=== PATIENT | female | born 1945 | race Caucasian/White ===

== ENCOUNTER 2016-05-28 18:12 | Observation (INO) | payer MEDICAID, MEDICARE ==
[~2016-05-28] VITALS: Ht 157.5 cm; Wt 63.4 kg
[2016-05-28 18:16] VITALS: BP 127/77; PULSE 78; RESP 16; O2SAT 98
[2016-05-28] MEDS ORDERED: BIOT10004 (18:23)
[2016-05-28] MEDS ORDERED: LAMO100T2 PO (18:23)
[2016-05-28] MEDS ORDERED: LEVO125T6 PO (18:23)
[2016-05-28] MEDS ORDERED: SERT100T9 PO (18:23)
[2016-05-28] MEDS ORDERED: LOSA50TA37 PO (18:23)
[2016-05-28] MEDS ORDERED: LOVA20TA PO (18:23)
[2016-05-28] MEDS ORDERED: INDA1.252 PO (18:23)
[2016-05-28 18:46] LABS: BASOPHILS % (AUTO) 0.6 % (0-3); EOSINOPHILS % (AUTO) 2.4 % (0-5); MONOCYTES % (AUTO) 8.8 % (4-12); Mean Corpuscular Hemoglobin 30.2 pg (27.0-35.0); Mean Corpuscular Volume 87.9 fL (81-100); NEUTROPHILS % (AUTO) 50.9 % (40-74); Platelet Count 293 bil/L (150-400)
--- NOTE | 2016-05-28 19:00 | ED.REPORT ---
HPI-Chest Pain 40 and Over Date of Service May 28, 2016 ED Provider: Dr. Amado Pineda D.O. 70 year old female presents for evaluation of precordial chest pain.. The pain lasted 15-20 minutes and was "tight" in nature, with radiation through to her back. The patient also reports shortness of breath. She denies fever, cough, vomiting, diarrhea, or other symptoms. The patient had a similar episode of chest pain three months ago, after which she was seen by her PCP who instructed her to visit the ED with any reoccurrence of pain. She has a family history of CAD in her father and brother. Nursing Notes Stated Complaint: CHEST PAIN Chief Complaint: Chest Pain Nursing Notes Reviewed: Yes Allergies: Coded Allergies: erythromycin base (Verified Allergy, Intermediate, Nausea,Vomiting, ) propoxyphene (Verified Allergy, Intermediate, Nausea, 05/28/16) Uncoded Allergies: DAIRY (Allergy, Unknown, stomach upset, 05/06/15) Scheduled Biotin (Biotin) 1,000 Mcg Tab.chew 1,000 MCG BID Indapamide (Indapamide) 1.25 Mg Tablet 1.25 MG PO DAILY Lamotrigine (Lamotrigine) 100 Mg Tablet 200 MG PO QPM Levothyroxine (Levothyroxine) 125 Mcg Tablet 75 MCG PO DAILY Losartan Potassium (Losartan Potassium) 50 Mg Tablet 50 MG PO BID Lovastatin (Lovastatin) 20 Mg Tablet 20 MG PO QPM Sertraline HCl (Sertraline) 100 Mg Tablet 100 MG PO DAILY General Time Seen by MD: 18:59 Chief Complaint Chest pain Hx Obtained From: Patient Arrived By: Walk-in Sudden in Onset?: Yes Onset Occurred: 1 - 4 hours ago Symptom Duration: 1 - 15 minutes Location: : Substernal Quality: Painful (Tight) Radiation: : Back Severity: Current: No pain currently Severity: Maximum: Moderate Associated with: Reports: Shortness of Breath, Denies: Cough, non-productive, Fever, Nausea, Vomiting Context Related History: Reports: Hypertension Recent Healthcare: No recent doctor visit Similar Sx Previous: Yes Past Medical History Past Medical History Hx. of R TM perf Hypertension Migraines Bipolar disorder Reports: Mental illness Past Surgical History None reported Family History Father had CABG, [place], stroke Brother had [place] Smoking History Never Smoker Social History Alcohol Use: Denies alcohol use Drug Use: Denies drug use Ambulatory Status Independent Review of Systems Basic Review of Systems Eyes: Vision NL ENT: Hearing NL, No pain : No dysuria Hematologic: No bleeding Endocrine: No cold intolerance, No heat intolerance Allergy / Immune: No allergy Constitutional: Denies: Fever Respiratory: Reports: Shortness of breath, Denies: Non-productive cough Cardiovascular: Reports: Chest pain (Precordial) GI: Denies: Diarrhea, Vomiting Skin: Denies Diaphoresis Complete sys rev & neg: except as marked. Physical Exam Initial Vital Signs Vital Signs (First) Date Time Temp Pulse Resp B/P Pulse Ox O2 Delivery O2 Flow Rate FiO2 05/28/16 18:16 36.1 78 16 127/77 98 Room Air Initial VS: Reviewed Head / Eyes: Atraumatic, Normocephalic ENT: Conjunctiva normal, No scleral icterus Neck: Supple, Full range of motion Extremities: Vascular intact, Neuro intact, No swelling Skin: Warm, Dry, No cyanosis Neurologic: Alert, Oriented, Nonfocal Psychiatric: Mood/affect normal, Behavior normal, Normal thought content General/Constitutional: Awake, Alert, No acute distress Respiratory / Chest: Breath sounds NL, Breath sounds = bilat, No respiratory distress, No chest tenderness Cardiovascular: Heart rate NL, Regular rhythm, Heart sounds NL Abdomen: Soft, Non-tender Interpretation & Diagnostics Lab Results Interpretation Result Diagram: 05/28/163 05/28/16 1833 Test 05/28/16 18:33 05/28/16 20:53 White Blood Count 6.6th/mm3 (3.8-10.1) Red Blood Count 4.14mil/mm3 (3.90-5.20) Hemoglobin 12.5g/dL (12.0-15.6) Hematocrit 36.4% (35.0-46.0) Mean Corpuscular Volume 87.9fL (81-100) Mean Corpuscular Hemoglobin 30.2pg (27.0-35.0) Mean Corpuscular Hemoglobin Concent 34.3% (32.0-37.0) Red Cell Distribution Width 12.1% (12.3-15.4) Platelet Count 293bil/L (150-400) Neutrophils (%) (Auto) 50.9% (40-74) Lymphocytes (%) (Auto) 37.3% (14-46) Monocytes (%) (Auto) 8.8% (4-12) Eosinophils (%) (Auto) 2.4% (0-5) Basophils (%) (Auto) 0.6% (0-3) Prothrombin Time 9.4sec (8.1-12.5) Prothromb Time International Ratio 0.88ratio Activated Partial Thromboplast Time 25.2sec (22.8-33.0) D-Dimer < 0.50mg/L FEU (<0.50) Sodium Level 140mEq/L (134-144) Potassium Level 3.0mEq/L (3.5-5.2) Chloride Level 100mEq/L (97-108) Carbon Dioxide Level 24mmol/L (18-29) Blood Urea Nitrogen 22mg/dL (8-27) Creatinine 1.03mg/dL (0.57-1.00) Estimat Glomerular Filtration Rate 76mL/min (>59) Glucose Level 102mg/dL (60-99) Calcium Level 10.0mg/dL (8.5-10.1) Magnesium Level 2.0mg/dL (1.6-2.6) Total Bilirubin 0.4mg/dL (0.0-1.2) Aspartate Amino Transf (AST/SGOT) 19U/L (0-50) Alanine Aminotransferase (ALT/SGPT) 9U/L (0-32) Alkaline Phosphatase 70U/L (25-165) Troponin T < 0.010ug/L (0.0-0.011) Total Protein 7.2g/dL (6.4-8.4) Albumin 4.6g/dL (3.4-5.0) Hold Urine Received (Received) ECG Interpretation ECG Interpretation: Sinus rhythm rate [address] segments Time: 18:33 Interpreted by: ED physician X-Ray Chest Interpretation Chest Xray Interpretation: IMPRESSION: 1. No acute cardiopulmonary disease. Dictated by: Jasvir Butler M.D. on 05/28/2016 at 18:56 View: Portable, 1 view Interpretation / Wet Read by: Interpret - Radiologist Re-Eval/Medical Decision Med Decision/Clinical Course Plan for an observation admit for serial enzymes and stress test. Lisa is very pleased with this plan. Source of Hx: Old records Time of Eval: 20:55 Patient Status: Condition improved Re-Evaluation/Progress Note: The patient is still pain free. Discussed with patient x-ray and lab results, diagnosis, and plan for admit. Patient agrees with plan for care and all questions were addressed. Consultation : Referral / Consult Name: Crow Bray MD Call Returned at: 21:05 Music Video Producer: Agrees with eval, Agrees with plan, Accepts admit Counseled Regarding: Diagnosis, Lab results, Need for admission Discharge & Departure Shift Change Sign-Out Response to Therapy: Improved Primary Impression: Chest pain Chest pain type: precordial chest pain Qualified Code: R07.2 - Precordial pain Disposition: ADMITTED TO HOSPITAL Discharge Condition All VS Reviewed: Yes Condition: Improved Referrals: Eden Fox (PCP) Mckenzie Attestation Portions of this note were transcribed by Brook Davis. I, Dr. Pineda, personally performed the history, physical exam, and medical decision-making; I reviewed and confirmed the accuracy of the information in the transcribed note. Signed by: Mckenzie Mauro, 05/28/2016, 21:30 copies to: Eden Fox Todd P DO May 28, 2016 19:00 BROOK DAVIS May 28, 2016 19:35
--- NOTE | 2016-05-28 19:03 | DRSVH ---
PROCEDURE: X-RAY CHEST ONE VIEW, PORTABLE ([id number]) INDICATIONS: chest pain TECHNIQUE: One view of the chest was acquired. COMPARISON: None. FINDINGS: Surgical changes and devices: None. Lungs and pleura: No pleural effusions or pneumothorax. Lungs are clear. Mediastinum: Mediastinal contours appear normal. Heart size is normal. Bones and chest wall: No suspicious bony lesions. Overlying soft tissues appear unremarkable. IMPRESSION: 1. No acute cardiopulmonary disease. Dictated by: Jasvir Butler M.D. on 05/28/2016 at 18:56 Approved by: Jasvir Butler M.D. on 05/28/2016 at 18:56
[2016-05-28 19:12] LABS: TROPONIN T < 0.010 ug/L (0.0-0.011)
[2016-05-28 19:48] VITALS: BP 127/63; PULSE 71; RESP 16; O2SAT 100
[2016-05-28 20:52] VITALS: BP 109/55; PULSE 67; RESP 18; O2SAT 95
[2016-05-28] MEDS ORDERED: 0.9% Sodium Chloride 1,000 ML IV SCH (21:12)
[2016-05-28] MEDS ORDERED: Polyethylene Glycol (PEG) 17 Gm Powder PO PRN (21:15)
[2016-05-28] MEDS ORDERED: Ondansetron 2 mg/mL 2 mL Inj IVPUSH PRN (21:15)
[2016-05-28] MEDS ORDERED: Alum-Mag Hydrox-Simeth 30 mL Suspension PO PRN (21:15)
[2016-05-28] MEDS ORDERED: Senna-Docusate 8.6-50 mg Tablet PO PRN (21:15)
[2016-05-28] MEDS ORDERED: Atropine 1 mg/10 mL (Code) Syringe IVPUSH PRN (21:15)
[2016-05-28 21:23] VITALS: BP 128/95; PULSE 67; RESP 20; O2SAT 98
[2016-05-28 21:27] LABS: INR 0.88 ratio
[2016-05-28] MEDS ORDERED: KCl 40 mEq/D5W 500 mL 40 MEQ in IV Premix 500 EACH IV ONE (21:45)
--- NOTE | 2016-05-28 21:54 | PCM.HPMED ---
Subjective Date of Service May 28, 2016 Primary Provider: Admitting Physician: Crow Bray MD Primary Care Physician: Eden Fox Attending Physician: Crow Bray MD Chief Complaint: Chest pain History of Present Illness: Patient is a 70 y.o. F with medical history of hypothyroidism, bipolar disorder , HTN, migraines, hyperlipidemia. She presented to ED with complaint of chest pain that was sudden onset while moving boxes, patient described pain as "tightness" located substernaly, with radiation throughout chest and to back, pain described as moderate to severe, associated with dizziness, mild SOB, pain lasted for about 15 minutes and dissipated on its own. At time of examination pain has completely resolved. patient denies syncope, change in vision, headache , nausea, vomiting, diarrhea, constipation, abdominal pain, dysuria, fever, chills. PND, orthopnea. Patient had similar episode 3 months ago evaluated by PCP who adviser her to go to ED with any reoccurrence of pain. FH positive for father and brother with IA. Review of Systems: A comprehensive review of systems was conducted with the patient and found to be negative except as above in the History of Present Illness. Allergies Coded Allergies: erythromycin base (Verified Allergy, Intermediate, Nausea,Vomiting, ) propoxyphene (Verified Allergy, Intermediate, Nausea, 05/28/16) Uncoded Allergies: DAIRY (Allergy, Unknown, stomach upset, 05/06/15) Home Medications Biotin (Biotin) 1,000 Mcg Tab.chew 1,000 MCG BID Indapamide (Indapamide) 1.25 Mg Tablet 1.25 MG PO DAILY Lamotrigine (Lamotrigine) 100 Mg Tablet 200 MG PO QPM Levothyroxine (Levothyroxine) 125 Mcg Tablet 75 MCG PO DAILY Losartan Potassium (Losartan Potassium) 50 Mg Tablet 50 MG PO BID Lovastatin (Lovastatin) 20 Mg Tablet 20 MG PO QPM Sertraline HCl (Sertraline) 100 Mg Tablet 100 MG PO DAILY PMH Hx. of R TM perf Hypertension Migraines Bipolar disorder Surgical History Breast reduction TNA Tubal ligation Family History Father had CABG, [place], stroke Brother had IA Mother EOTH abuse No FH of cancer Social History Hx Alcohol Use: No Hx Substance Use: No Hx Tobacco Use: No Smoking Status: Never Smoker Exam Vital Signs Vital Sign - Last Date Time Temp Pulse Resp B/P Pulse Ox O2 Delivery O2 Flow Rate FiO2 05/28/16 21:23 67 20 128/95 98 Room Air 05/28/16 18:16 36.1 Exam General: No acute distress, well-developed, well-nourished, appropriately interactive HEENT: Normocephalic, atraumatic. External ears without defect. Pupils equal, round, and reactive to light and accommodation. Anicteric sclerae, moist conjunctivae, and no lid lag. Oropharynx free of erythema and cobble stoning with moist mucosa. Neck: Supple with full range of motion. No jugular venous distension. No bruits. No lymphadenopathy or thyromegaly. Cardiovascular: Regular rate and rhythm with no murmurs, rubs, or gallops appreciated Pulmonary: No chest wall tenderness, Clear to auscultation bilaterally with no crackles, wheezes, or rhonchi. Normal respiratory effort with no use of accessory muscles. Abdomen: Bowel tones present. Soft, nontender, nondistended. No hepatosplenomegaly or masses appreciated. Extremities: No clubbing, cyanosis, edema, or lymphadenopathy appreciated. neurovascularly intact Skin: Normal temperature, dry, turgor, and texture; no rash, ulcers, Neurological: Cranial nerves grossly intact. Normal muscle strength, tone, and bulk. Reflexes, coordination, and sensory function within normal limits. No known gait impairment. Psychiatric: Normal mood and affect. Alert and oriented to person, place, and time. Lab and Diagnostics Result Diagram: 05/28/16 1833 05/28/16 1833 X-Rays, CTs and MRIs Chest X-RAY IMPRESSION: 1. No acute cardiopulmonary disease. Dictated by: Jasvir Butler M.D. on 05/28/2016 at 18:56 Approved by: Jasvir Butler M.D. on 05/28/2016 at 18:56 12-lead ECG ECG Interpretation: Sinus rhythm rate [address] segments Time: 18:33 Interpreted by: ED physician Agree with interpretation Assessment & Plan Patient is a 70 y.o. F with medical history of hypothyroidism, bipolar disorder , HTN, migraines, hyperlipidemia. Admitted for rule out of cardiac chest pain. 1. Chest pain, acute, resolved - Likely stable angina, risk factors for CAD/ACS HTN, family history, hyperlipidemia, unknown prior stress test, echo - RADHA score 2 - IVF NS 80 mls/hr - Trend troponin Q6 x3 - ASA 81 mg PO QD - Continue HTN medications - Continue statin - Stress test AM ordered - ECHO AM ordered - lipid panel ordered - Repeat CBC and BMP in AM - Continue tele - Cardiac diet 2. MARE - mild elevation Cr 1.03, likely prerenal azotemia, patient has risk factors from Bipolar medications and past use of lithium for intrarenal disease - IVF as above #1 - UA ordered - Repeat BMP as above #1 3. Hypokalemia, acute - 40 yuniel IV K riders ordered, goal K 4.0 - Continue IVF as above #1 - Repeat BMP as above Chronic conditions Hypertension - IV tylenol Migraines -continue home meds Bipolar disorder - Continue home meds - Check Lamotrigine level CODE STATUS: FULL CODE DVT: SQ heparin GI: Famotidine Patient is admitted under observation status with expected length of stay less than 2 midnights due to severity of presenting symptoms, risk of adverse event Attending Statement The patient was seen and examined together with Dr. Medel on 05/28 and I agree with the history, exam and plan as outlined in the note above. AMISH MEDEL DO May 28, 2016 21:54 Crow Bray MD May 29, 2016 01:23
[2016-05-28 21:57] VITALS: BP 132/66; PULSE 73; RESP 18; O2SAT 99
[2016-05-28 21:59] VITALS: PULSE 78
--- NOTE | 2016-05-28 22:20 | NUR ---
Admit Received PT from ER via stretcher, she was able to ambulate to the bed with stand by assist. No complaints of chest pain or SOB, looks and sounds very comfortable. Admit HX done at this time and PT oriented to room and routine. She does report some unsteadiness on her feet earlier so she was asked to call for assist with activity, she verbalized understanding. PT left with 2 side rails up, bed alarm on and call light in reach.
[2016-05-28] MEDS ORDERED: lamoTRIgine 100 mg Tablet PO SCH (22:30)
[2016-05-29] MEDS: Sodium Chloride LOK Flush 10 mL Syringe IVFLUSH SCH ×2 (01:01→08:30)
[2016-05-29] MEDS: Heparin 5,000 Unit/mL Inj SUBQ SCH ×2 (01:05→08:37)
[2016-05-29 02:03] VITALS: BP 131/57; PULSE 61; RESP 18; O2SAT 98
--- NOTE | 2016-05-29 05:26 | NUR ---
activity Pt alert and oriented throughout shift, some noted anxiety. Pt resting in bed, up to bathroom with SBA. No complains of chest pain or discomfort. Will continue to monitor.
[2016-05-29 05:48] VITALS: BP 120/70; PULSE 76; RESP 18; O2SAT 96
[2016-05-29 05:52] LABS: BASOPHILS % (AUTO) 0.6 % (0-3); EOSINOPHILS % (AUTO) 2.4 % (0-5); MONOCYTES % (AUTO) 9.6 % (4-12); Mean Corpuscular Hemoglobin 29.9 pg (27.0-35.0); Mean Corpuscular Volume 88.9 fL (81-100); Platelet Count 250 bil/L (150-400)
[2016-05-29] MEDS ORDERED: KCl 40 mEq/D5W 500 mL 40 MEQ in IV Premix 1 EACH IV ONE (06:20)
[2016-05-29 08:22] LABS: BASOPHILS % (AUTO) 0.8 % (0-3); EOSINOPHILS % (AUTO) 3.3 % (0-5); MONOCYTES % (AUTO) 11.1 % (4-12); Mean Corpuscular Hemoglobin 30.2 pg (27.0-35.0); Mean Corpuscular Volume 88.9 fL (81-100); Platelet Count 222 bil/L (150-400)
[2016-05-29] MEDS ORDERED: INDAPAMIDE 1.25 MG PO SCH (08:30)
--- NOTE | 2016-05-29 09:15 | NUR ---
Pt off floor for stress test. SL, pants and shoes on, tele removed per request. Taken via WC.
[2016-05-29 10:18] VITALS: PULSE 66
[2016-05-29 11:33] LABS: APPEARANCE,URINE HAZY (CLEAR,HAZY); COLOR,URINE STRAW (YELLOW); OCCULT BLOOD,URINE NEGATIVE (NEGATIVE); UROBILINOGEN,URINE NORMAL (NORMAL)
[2016-05-29 12:40] VITALS: BP 114/63; PULSE 64; RESP 18; O2SAT 95
--- NOTE | 2016-05-29 12:40 | NUR ---
Case Management - ÁLVAREZ explained and signed/timed by patient. Copy given to patient and orginal placed in chart. Kati VERGARA/BRIE
--- NOTE | 2016-05-29 13:51 | DRSVH ---
PROCEDURE: 1 DAY TREADMILL STRESS TEST Rest and exercise myocardial perfusion SPECT with gated imaging and ejection fraction RADIOPHARMACEUTICAL: 8.8 mCi Tc-99m tetrafosmin IV at rest and 24.1 mCi Tc-99m tetrafosmin IV at peak exercise. [id number]-jzjncyzq was performed. INDICATIONS: 70 year-old woman with chest pain. The patient has hypertension, hyperlipidemia and fam helena history of coronary artery disease. TECHNIQUE: Radiopharmaceutical was injected at peak stress test, and also at rest. SPECT images wer e obtained. SPECT myocardial perfusion images were displayed in short axis, horizontal long axis, an d vertical long axis views. Gated images were reviewed using AutoQUANT software. COMPARISON: None. CARDIAC STRESS: A standard John treadmill exercise tolerance test was performed by the patient under the supervision of an attending staff. The patient exercised for 6 minutes and 8 seconds; functional aerobic impair ment (HARDY) is -6 %. Hemodynamic data: There is normal blood pressure and heart rate response to exercise stress. Patien t achieved 87% of maximum predicted heart rate at peak exercise. Symptoms: Patient denied chest pain during exercise. EKG: No diagnostic EKG changes of ischemia; no ectopy. FINDINGS: Raw data: There is good myocardial labeling by radiotracer. No significant motion artifacts. Left ventricle function: Gated images demonstrate normal left ventricle wall thickening. No segment al wall motion abnormality. No transient ischemic dilation. The left ventricle resting end-diastoli c volume is normal. Left ventricle stress ejection fraction is greater than 70%; normal values are a corie 45%. Myocardial perfusion: There is normal distribution of activity in the left and right ventricular jeni cardium. No fixed or reversible perfusion defects. IMPRESSION: 1. Normal myocardial perfusion images. 2. Normal left ventricular volume and systolic function. 3. Above average exercise capacity. No chest pain or diagnostic EKG changes for ischemia. PQRS ATTESTATIONS: Measure 322 - Is this imaging test primarily performed on a low-risk surgery patient for preoperative evaluation within 30 days preceding their low-risk non-cardiac surgery? Low-risk surgery is defined as cardiac or myocardial infarction less than 1%, including (but not limited to) endoscopic pr ocedures, superficial procedures, cataract surgery, and excisional breast surgery: Answer: No Measure 323 - Is this imaging test performed primarily for the monitoring of an asymptomatic patient who had percutaneous coronary intervention on the visit date or within 2 years of the visit date? An swer: No Measure 324 - Is this imaging test performed primarily for the initial detection and risk assessment on an asymptomatic, low coronary heart disease patient? Low CHD risk definition = clinicians should consider the maximum number of available patient factors used to estimate risk based on [place] (A TP III criteria), typically age, gender, diabetes, smoking status, and use of blood pressure medicati on, and integrate age appropriate estimates for missing elements, such as LDL or standard blood press ure. Answer: No Dictated by: Paras Dhaliwal M.D. on 05/29/2016 at 13:27 Approved by: Paras Dhaliwal M.D. on 05/29/2016 at 13:49
--- NOTE | 2016-05-29 14:09 | PCM.DIMED ---
Jyoti Senior DO 05/29/16 1409: Discharge Instructions Date of Service May 29, 2016 Dates of Hospitalization May 28, 2016 at 21:27 Discharge Diagnosis Discharge Diagnosis 1. Chest pain, acute, resolved 2. MARE 3. Hypokalemia, acute Chronic conditions Hypertension Migraines Bipolar disorder Medication Instructions No changes were made to your medications. A level of your lamotrigine has been ordered but is pending. You PCP can follow up on this. Diet Heart Healthy Activity Limited until seen by PCP Call your provider Fever or Chills, Shortness of breath, Chest pain Patient Instructions Please follow up with your PCP in 1-2 weeks. Your stress test was normal, so the pain in your chest was not likely due to your heart. If the pain continues please let your PCP know or seek medical attention immediately. Michi Donovan MD 05/29/16 1551: Discharge Instructions Attending's Statement The patient was seen and examined independently on 05/29/2016 and case discussed with , I agree with the discharge instructions as outlined in the note above. Jyoti Senior DO May 29, 2016 14:09 Michi Donovan MD May 29, 2016 15:51
--- NOTE | 2016-05-29 14:31 | NUR ---
Social Work: Initial Assessment / D/C Data: Pt is a 70 y/o female admitted for chest pain resolved. Pt's PCP is Dr Fox, pt's insurance is Medicare with [facility] supp. EMR reviewed, readmit score not listed. Pt on day 1 of hospitalization. D/C orders are in. FARM FACILITY MANAGER met with pt at bedside, role explained. Pt states she lives in a two story home with her brother where she uses no DME. Pt states she drives, has no hx of HH or SNF, no LTC or VA benefits, pt is not a caregiver. Pt declined info for AD/DPOA. No d/c planning needs anticipated at this time. FARM FACILITY MANAGER will continue to follow if needs arise. Assessment: Pt who is independent at baseline. Plan: Pt will d/c home via POV today. No d/c planning needs anticipated at this time. FARM FACILITY MANAGER will continue to follow if needs arise. RACHELE Kelly Addendum: 05/29/16 at 1433 by CHASITY KING Amended: Links added.
[2016-05-29 15:09] VITALS: BP 121/60; PULSE 74; RESP 18; O2SAT 97
--- NOTE | 2016-05-29 15:54 | NUR ---
Discharge Reviewed discharge paperwork and care notes with pt, disclaimer signed. IV DCd intact, tele removed, all belongings with pt. Pt reports no pain, VSS, no s/sx of distress. Pt requests to walk out by foot. Pt steady and strong on feet. Escorted curbside, pt driving personal car home, declines to have assistance for driving home.
--- NOTE | 2016-05-29 16:33 | DRSVH ---
[facility] [address] [place] [address] Echocardiogram Report Name: MAULIK VILLANUEVA RStudy Date: 05/29/2016 Height: 62 in Hospital Exam Location: [facility] Weight: 140 lb Gender: Female BSA: 1.6 m2 : 1945 Age: 70 yrs BP: 120/70 mm Hg Reason For Study: Chest pain Ordering Physician: HOSPITALIST [facility] Performed By: Greta Joe Referring Physician: Eden Fox Interpretation Summary The left ventricle is normal in size, wall thickness, and systolic function without any focal wall motion abnormalities. The ejection fraction is estimated to be 60-65%. The right ventricle is normal in size and function. The right ventricular systolic pressure is estimated at 29 mmHg assuming a right atrial pressure of 8 mm Hg. Both atria are normal in size. There is no significant valvular heart disease. The aortic root is normal size. Procedure: A two-dimensional transthoracic echocardiogram with color flow and Doppler was performed. The study quality was technically adequate. There is no prior echocardiogram noted for this patient. The patient was in normal sinus rhythm during the exam. Left Ventricle: The left ventricle is normal in size, wall thickness, and systolic function without any focal wall motion abnormalities. The ejection fraction is estimated to be 60-65%. Assessment of diastolic parameters indicates normal left ventricular diastolic function and normal filling pressures. Right Ventricle: The right ventricle is normal in size and function. Atria: Both atria are normal in size. There is no Doppler evidence for an interatrial shunt. Mitral Valve: The mitral valve is normal in structure and function. There is trace mitral regurgitation. Aortic Valve: The aortic valve is not well visualized. There is no aortic valve stenosis. No aortic regurgitation is present. Tricuspid Valve: The tricuspid valve leaflets are thin and pliable. There is mild tricuspid regurgitation. The right ventricular systolic pressure is estimated at 29 mmHg assuming a right atrial pressure of 8 mm Hg. Pulmonic Valve: The pulmonic valve is not well visualized. There is no significant valvular heart disease. Great Vessels: The aortic root is normal size. The ascending aorta is normal in size. The aortic arch could not be visualized. The IVC is of normal diameter and collapses greater than 50% with a sniff. This suggests a low right atrial pressure of 3 mm Hg. Pericardium/ Pleura There is an anterior echo-free space consistent with a fat pad. There is no pericardial effusion. MMode/2D Measurements & Calculations LVIDd: 4.5 cm LA A2 area RA long axis LVOT diam EPSS: 0.13 cm IVSd: 0.64 cm RA area Ao root diam LVPWd: 1.0 cm LA A4 area : 13.2 cm asc Aorta Diam LA length (vol) RA vol: 30.6 ml RA LA vol: 42.5 ml : 18.6 mm2 LA vol index IVC diam: 1.6 cm LV santo. diameter/BSA RVD1 (basal) RVD2 (mid) (cm/m^2): 2.7 : 3.1 cm Doppler Measurements & Calculations Ao V2 max MV E max lucas MV E/A: 1.1 TR max lucas : 139.6 cm/sec : 77.2 cm/sec Med Peak E' Lucas : 231.2 cm/sec Ao max PG MV A max lucas TR max PG : 7.8 mmHg : 69.3 cm/sec E/E' med: 9.5 : 21.4 mmHg Ao mean PG MV P1/2t: 75.1 msec Pulm A Revs Dur PA V2 max : 70.6 cm/sec LVOT Max Lucas MV A dur: 0.13 sec PA mean PG : 100.1 cm/sec : 0.98 mmHg PA Accel Time WILMAR(I,D): 1.2 cm : 0.16 sec sev ratio MV dec time MV P1/2t max lucas Ao V2 mean LV V1 max PG : 0.25 sec : 104.0 cm/sec MVA(P1/2t): 2.9 cm2 Ao V2 VTI: 34.6 cm LV V1 VTI WILMAR(V,D): 1.4 cm2 : 21.9 cm PA V2 mean WILMAR indexed to MITUL Chowdary Dur - MV A : 46.1 cm/sec (cm^2/m^2): 0.73 Dur: -0.02 msec Reading Physician:FANG
--- NOTE | 2016-05-30 11:22 | PCM.DC.MED ---
Discharge Summary Date of Service May 30, 2016 Dates of Hospitalization Date of Hospital Admission May 28, 2016 at 21:27 Date of Discharge: May 29, 2016 Providers: Admitting Physician: Crow Bray MD Primary Care Physician: Eden Fox Attending Physician: Crow Bray MD Diagnosis at Time of Discharge Diagnosis at Time of Discharge 1. Chest pain, acute, resolved 2. MARE 3. Hypokalemia, acute Chronic conditions Hypertension Migraines Bipolar disorder Procedures XRay, CTs & MRIs Chest X-RAY IMPRESSION: 1. No acute cardiopulmonary disease. Dictated by: Jasvir Butler M.D. on 05/28/2016 at 18:56 Approved by: Jasvir Butler M.D. on 05/28/2016 at 18:56 ECG 12 Lead ECG Interpretation: Sinus rhythm rate [address] segments Time: 18:33 Interpreted by: ED physician Agree with interpretation Brief History From Dr. Mcmahon's H and P: "Patient is a 70 y.o. F with medical history of hypothyroidism, bipolar disorder, HTN, migraines, hyperlipidemia. She presented to ED with complaint of chest pain that was sudden onset while moving boxes, patient described pain as "tightness" located substernaly, with radiation throughout chest and to back, pain described as moderate to severe, associated with dizziness, mild SOB, pain lasted for about 15 minutes and dissipated on its own. At time of examination pain has completely resolved. patient denies syncope, change in vision, headache, nausea, vomiting, diarrhea, constipation, abdominal pain, dysuria, fever, chills. PND, orthopnea. Patient had similar episode 3 months ago evaluated by PCP who adviser her to go to ED with any reoccurrence of pain. FH positive for father and brother with [place]." Hospital Course Patient is a 70 y.o. F with medical history of hypothyroidism, bipolar disorder , HTN, migraines, hyperlipidemia. Admitted for rule out of cardiac chest pain. 1. Chest pain, acute, resolved - Likely stable angina, risk factors for CAD/ACS HTN, family history, hyperlipidemia, unknown prior stress test, echo - RADHA score 2 - Trended troponin Q6 x3 negative - ASA 81 mg PO QD - Continued HTN medications - Continued statin - Stress test negative -follow up with PCP.chest pain resolved 2. MARE,improved - mild elevation Cr 1.03, likely prerenal azotemia, patient has risk factors from Bipolar medications and past use of lithium for intrarenal disease - IVF 3. Hypokalemia, acute - 40 yuniel IV K riders ordered, goal K 4.0 Chronic conditions Hypertension - IV tylenol Migraines -continue home meds Bipolar disorder - Continued home meds - Checked Lamotrigine level,level may be followed by PCP Exam Vital Signs (Last) Date Time Temp Pulse Resp B/P Pulse Ox O2 Delivery O2 Flow Rate FiO2 05/29/16 15:09 36.4 74 18 121/60 97 Room Air Exam General: No acute distress, well-developed, well-nourished, appropriately interactive HEENT: Normocephalic, atraumatic. External ears without defect. Pupils equal, round, and reactive to light and accommodation. Anicteric sclerae, moist conjunctivae, and no lid lag. Oropharynx free of erythema and cobble stoning with moist mucosa. Neck: Supple with full range of motion. No jugular venous distension. No bruits. No lymphadenopathy or thyromegaly. Cardiovascular: Regular rate and rhythm with no murmurs, rubs, or gallops appreciated Pulmonary: No chest wall tenderness, Clear to auscultation bilaterally with no crackles, wheezes, or rhonchi. Normal respiratory effort with no use of accessory muscles. Abdomen: Bowel tones present. Soft, nontender, nondistended. No hepatosplenomegaly or masses appreciated. Extremities: No clubbing, cyanosis, edema, or lymphadenopathy appreciated. neurovascularly intact Skin: Normal temperature, dry, turgor, and texture; no rash, ulcers, Neurological: Cranial nerves grossly intact. Normal muscle strength, tone, and bulk. Reflexes, coordination, and sensory function within normal limits. No known gait impairment. Psychiatric: Normal mood and affect. Alert and oriented to person, place, and time. Test 05/28/16 18:33 05/28/16 20:15 05/28/16 20:53 05/28/16 23:11 Prothrombin Time 9.4sec (8.1-12.5) Prothromb Time International Ratio 0.88ratio Activated Partial Thromboplast Time 25.2sec (22.8-33.0) D-Dimer < 0.50mg/L FEU (<0.50) Hemoglobin A1c 5.5% (4.8-5.6) Magnesium Level 2.0mg/dL (1.6-2.6) Urine Color Straw (YELLOW) Urine Appearance Hazy (CLEAR,HAZY) Urine pH 7.0 (5.0-8.0) Urine Specific [place] 1.005 (1.003-1.035) Urine Protein Negativemg/dL (NEG,TRACE) Urine Glucose (UA) Negativemg/dL (NEGATIVE) Urine Ketones Negativemg/dL (NEGATIVE) Urine Occult Blood Negative (NEGATIVE) Urine Nitrite Positive (NEGATIVE) Urine Bilirubin Negative (NEGATIVE) Urine Urobilinogen Normalmg/dL (NORMAL) Urine Leukocyte Esterase Trace (NEGATIVE) Urine RBC 0-2/hpf (0-2) Urine WBC 6-10/hpf (0-5) Urine Epithelial Cells Occasional/hpf (NONE-MOD) Urine Crystals None seen (NONE SEEN) Urine Bacteria Few/hpf (NONE-FEW) Urine Hyaline Casts None/lpf (NONE) Urine Granular Casts None seen (NONE SEEN) Urine Waxy Casts None seen (NONE SEEN) Urine Red Blood Cell Casts None seen (NONE SEEN) Urine White Blood Cell Casts None seen (NONE SEEN) Urine Mucus None seen (None Seen) Urine Trichomonas None seen (NONE SEEN) Urine Yeast None (NONE SEEN) Urinalysis Comment Transitional epi Urine Culture Reflexed Indicated Hold Urine Received (Received) Test 05/29/16 02:15 05/29/16 08:14 Triglycerides Level 56mg/dL (0-149) Cholesterol Level 137mg/dL (100-199) LDL Cholesterol, Calculated 72.800mg/dL (0-99) VLDL Cholesterol 11.200mg/dL HDL Cholesterol 53mg/dL (>39) Cholesterol/HDL Ratio 2.58 (0.0-4.4) White Blood Count 3.9th/mm3 (3.8-10.1) Red Blood Count 3.68mil/mm3 (3.90-5.20) Hemoglobin 11.1g/dL (12.0-15.6) Hematocrit 32.7% (35.0-46.0) Mean Corpuscular Volume 88.9fL (81-100) Mean Corpuscular Hemoglobin 30.2pg (27.0-35.0) Mean Corpuscular Hemoglobin Concent 33.9% (32.0-37.0) Red Cell Distribution Width 12.2% (12.3-15.4) Platelet Count 222bil/L (150-400) Neutrophils (%) (Auto) 37.0% (40-74) Lymphocytes (%) (Auto) 47.8% (14-46) Monocytes (%) (Auto) 11.1% (4-12) Eosinophils (%) (Auto) 3.3% (0-5) Basophils (%) (Auto) 0.8% (0-3) Sodium Level 144mEq/L (134-144) Potassium Level 3.4mEq/L (3.5-5.2) Chloride Level 106mEq/L (97-108) Carbon Dioxide Level 25mmol/L (18-29) Blood Urea Nitrogen 15mg/dL (8-27) Creatinine 0.94mg/dL (0.57-1.00) Estimat Glomerular Filtration Rate 84mL/min (>59) Glucose Level 107mg/dL (60-99) Calcium Level 9.4mg/dL (8.5-10.1) Total Bilirubin 0.5mg/dL (0.0-1.2) Aspartate Amino Transf (AST/SGOT) 13U/L (0-50) Alanine Aminotransferase (ALT/SGPT) 6U/L (0-32) Alkaline Phosphatase 57U/L (25-165) Troponin T 0.010ug/L (0.0-0.011) Total Protein 6.0g/dL (6.4-8.4) Albumin 3.9g/dL (3.4-5.0) Discharge Medications Discharge Medications Biotin (Biotin) 1,000 Mcg Tab.chew 1,000 MCG BID (Reported) Indapamide (Indapamide) 1.25 Mg Tablet 1.25 MG PO DAILY (Reported) Lamotrigine (Lamotrigine) 100 Mg Tablet 200 MG PO QPM (Reported) Levothyroxine (Levothyroxine) 125 Mcg Tablet 75 MCG PO DAILY (Reported) Losartan Potassium (Losartan Potassium) 50 Mg Tablet 50 MG PO BID (Reported) Lovastatin (Lovastatin) 20 Mg Tablet 20 MG PO QPM (Reported) Sertraline HCl (Sertraline) 100 Mg Tablet 100 MG PO DAILY (Reported) Additional med instructions No changes were made to your medications. A level of your lamotrigine has been ordered but is pending. You PCP can follow up on this. Followup Plan Disposition: home Discharge Diet: Heart Healthy Discharge Activity: Limited until seen by PCP Patient Instructions Please follow up with your PCP in 1-2 weeks. Your stress test was normal, so the pain in your chest was not likely due to your heart. If the pain continues please let your PCP know or seek medical attention immediately. Follow-up Provider: Eden Fox Follow-up with PCP in: 1 week Attending Statement The patient was seen and examined independently on 05/29/2016 and case discussed with , I agree with the discharge summary as outlined in the note above. copies to: Eden Fox Viktoriya DO May 30, 2016 11:22 Michi Donovan MD May 31, 2016 07:03
== END 2016-05-29 15:57 | disposition home or self-care (01) ==
LOC: SED 18:12 → MPC 21:27
PROVIDERS: ADMIT Hospitalist; ATTEND Hospitalist
DX: R07.9 Chest pain, unspecified (principal); N17.9 Acute kidney failure, unspecified; E87.6 Hypokalemia; E03.9 Hypothyroidism, unspecified; I10 Essential (primary) hypertension; E78.5 Hyperlipidemia, unspecified; F31.9 Bipolar disorder, unspecified; Z82.49 Family history of ischemic heart disease and other diseases of the circulatory system; Z88.8 Allergy status to other drugs, medicaments and biological substances
CPT/HCPCS: 36415; 71010; 78452; 80048; 80053; 80061; 81000; 82542; 83036; 83735; 84484; 85025; 85378; 85610; 85730; 87086; 87088; 93005; 93017; 96374; 96376; 99285; A9502; C8929; G0378; J1644; J3480; J7030